=== PATIENT | male | born 1960 | race African-American/Black ===

== ENCOUNTER 2017-10-02 17:11 | Inpatient (IN) | payer OTHER ==
[~2017-10-02] VITALS: Ht 172.7 cm; Wt 113.4 kg
[2017-10-02 17:12] VITALS: BP 143/72
--- NOTE | 2017-10-02 17:12 | NUR ---
PT TAKEN BY WHEEL CHAIR TO ER BED 11
--- NOTE | 2017-10-02 17:16 | NUR ---
DR CHILDS AT BEDSIDE TO REJI
--- NOTE | 2017-10-02 17:18 | NUR ---
57Y/M BIB MOTHER FOR C/O LEFT SIDED WEAKNESS AND NUMBNESS X 3DAYS.DENIES N/V/DIZZINESS OR SOB. 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 CLEAR SPEECH. SKIN IS PINK/WARM/DRY; AAOX4 WITH EVEN AND STEADY GAIT; PATIENT STATES PAIN OF 0/10 AT THIS TIME; VSS; PATIENT POSITIONED FOR COMFORT; HOB ELEVATED; BEDRAILS UP X1; BED DOWN. ER MD MADE AWARE OF PT STATUS.
[2017-10-02] MEDS ORDERED: NACL 0.9% 1,000 ML IV ONE (17:25)
[2017-10-02] MEDS ORDERED: TAMS0.4C96 PO (17:31)
[2017-10-02] MEDS ORDERED: ACET-2869 PO (17:31)
[2017-10-02] MEDS ORDERED: CETI-32 PO (17:31)
[2017-10-02] MEDS ORDERED: ESCI20TA PO (17:31)
[2017-10-02] MEDS ORDERED: LIP80 PO (17:31)
[2017-10-02] MEDS ORDERED: FAMO-90 PO (17:31)
[2017-10-02] MEDS ORDERED: AMLO10TA PO (17:31)
[2017-10-02 18:06] LABS: BASOPHILS # (AUTO) 0.1 K/uL (0.00-0.22); BASOPHILS % (AUTO) 1.6 % (0.0-2.0); EOSINOPHILS # (AUTO) 0.3 K/uL (0-0.4); EOSINOPHILS % (AUTO) 3.6 % (0.0-4.0); HEMOGLOBIN 14.6 g/dL (12.0-18.0); LYMPHOCYTES # (AUTO) 1.7 K/uL (2.0-11.5); LYMPHOCYTES % (AUTO) 19.1 % (20.5-51.1); MEAN CORPUSCULAR HEMOGLOBIN 26 pg (27-31); MEAN CORPUSCULAR HGB CONC 32 g/dL (33-37); MONOCYTES # (AUTO) 0.6 K/uL (0.8-1.0); MONOCYTES % (AUTO) 6.3 % (1.7-9.3); NEUTROPHILS # (AUTO) 6.2 K/uL (1.8-7.7); NEUTROPHILS % (AUTO) 69.4 % (42.2-75.2); PLATELET COUNT (AUTO) 129 K/uL (140-450); RED BLOOD CELL COUNT(AUTO) 5.68 MIL/uL (4.20-6.10); RED CELL DISTRIBUTION WIDTH 13.7 % (11.6-13.7)
[2017-10-02 18:20] LABS: ANION GAP 13.7 (8-16); CREATININE 1.6 mg/dL (0.7-1.3); POTASSIUM 3.7 mmol/L (3.5-5.1)
[2017-10-02 18:22] LABS: SALICYLATE 2.8 mg/dL (2.8-20.0)
[2017-10-02 18:23] LABS: PROTHROMBIN TIME 11.2 secs (10.8-13.4)
[2017-10-02 18:24] LABS: ACETAMINOPHEN < 0.5 ug/ml (10-30); ALBUMIN 3.7 g/dL (3.4-5.0); TOTAL BILIRUBIN 0.4 mg/dL (0.0-1.0)
[2017-10-02] MEDS ORDERED: ASPIRIN 81 MG TAB.CHEW PO ONE (18:35)
[2017-10-02] MEDS ORDERED: ENOXAPARIN 120 MG/0.8 ML SYR SUBQ ONE (18:35)
[2017-10-02 18:48] LABS: BARBITURATE, URINE NEG. ng/ml (NEG <=200); BENZODIAZEPINE, URINE NEG. ng/mL (NEG <=200); CANNABINOID, URINE POS. ng/mL (NEG <=50); COCAINE, URINE POS. ng/mL (NEG <=300); OPIATE, URINE POS. ng/mL (NEG <=2000); PHENCYCLIDINE SCREEN,URINE NEG. ng/mL (NEG <=25)
--- NOTE | 2017-10-02 19:10 | NUR ---
GAVE REPORT TO LUIS OLIVIA, AND SHASTA OLIVIA
--- NOTE | 2017-10-02 19:15 | NUR ---
PER DR. CHILDS, DR. HEATON DOES NOT WISH TO ADMIT. DR. HEATON WILL COME DOWN AND PERSONALLY DISCHARGE PATIENT.
--- NOTE | 2017-10-02 19:30 | NUR ---
pt is a/o x 4. pt is resting in bed. comfort measures were implemented. vitals are stable.
[2017-10-02] MEDS ORDERED: ONDANSETRON 4 MG/2 ML VIAL IVP PRN ×2 (20:55→21:15)
[2017-10-02] MEDS ORDERED: HYDROcodone/APAP 5/325 MG 1 TAB TAB PO PRN (20:55)
--- NOTE | 2017-10-02 21:00 | NUR ---
DR. HEATON NOW WISHES TO ADMIT PATIENT.
--- NOTE | 2017-10-02 21:27 | NUR ---
pt was transffered to tele
--- NOTE | 2017-10-02 21:30 | NUR ---
Patient will be admitted to care of dr. hester. Admited to tele. Will go to room 105A. Belongings list completed. Report to Robyn.
--- NOTE | 2017-10-02 21:30 | NUR ---
gave report to tele nurse Robyn, pt vitals were stable and tolerated transfer well.
--- NOTE | 2017-10-02 21:35 | NUR ---
RECEIVED FROM ER PER HUYEN AWAKE AND ALERT. VERBALIZES WELL. NO COMPLAINTS OF ANY PAIN AT THIS TIME. CARE PLANS FOR THE NIGHT DISCUSSED WITH HIM. RAPID RESPONSE EXPLAINED. ROM X 4. NO PARALYSIS NOTED. TELEMETRY MONITORING. SKIN INTACT AND DX. OF TIA. HX. OF GERD, HTN, BIPOLAR , BPH AND HYPERLIPEMIA. NO EDEMA NOTED. ENCOURAGED TO CALL FOR ANY HELP HE MAY NEED OR IF IN ANY PAIN. "OK".
[2017-10-02 21:51] VITALS: BP 131/98
[2017-10-02] MEDS ORDERED: PNEUMOCOCCAL VACCINE 23 MCG/0.5 ML VIAL IMVAC PRN (23:15)
[2017-10-03 00:52] VITALS: BP 121/87
--- NOTE | 2017-10-03 00:54 | NUR ---
PT. SLEEPING WELL. WOKE UP EASILY WHEN VITALS TAKEN. VERBALIZES WELL. NO COMPLAINTS OF ANY PAIN DONE. TELEMETRY MONITORING. CALL LIGHT WITH IN REACH. NO SOB.
[2017-10-03 03:27] LABS: CREATINE KINASE MB 0.7 ng/mL (0-3.6)
[2017-10-03 04:53] VITALS: BP 139/97
--- NOTE | 2017-10-03 05:11 | NUR ---
PT. WOKE UP WHEN VITALS TAKEN. 02 SAT ROOM AIR 97 %. NO SOB. DENIES PAIN AT THIS TIME. ABLE TO VERBALIZE WELL.
--- NOTE | 2017-10-03 06:30 | NUR ---
SLEEPING WELL. NO COMPLAINTS DONE. NO PAIN COMPLAINTS DONE THIS SHIFT. TELEMETRY MONITORING. VS WITH IN NORMAL LIMITS. CALL LIGHT WITH IN REACH.
[2017-10-03 07:20] LABS: BASOPHILS # (AUTO) 0.1 K/uL (0.00-0.22); BASOPHILS % (AUTO) 0.8 % (0.0-2.0); EOSINOPHILS # (AUTO) 0.4 K/uL (0-0.4); EOSINOPHILS % (AUTO) 5.2 % (0.0-4.0); HEMATOCRIT 41.2 % (36-52); HEMOGLOBIN 13.5 g/dL (12.0-18.0); LYMPHOCYTES % (AUTO) 25.7 % (20.5-51.1); MEAN CORPUSCULAR HEMOGLOBIN 27 pg (27-31); MEAN CORPUSCULAR HGB CONC 33 g/dL (33-37); MONOCYTES # (AUTO) 0.4 K/uL (0.8-1.0); MONOCYTES % (AUTO) 5.8 % (1.7-9.3); NEUTROPHILS # (AUTO) 4.9 K/uL (1.8-7.7); NEUTROPHILS % (AUTO) 62.5 % (42.2-75.2); PLATELET COUNT (AUTO) 112 K/uL (140-450); RED BLOOD CELL COUNT(AUTO) 5.09 MIL/uL (4.20-6.10); RED CELL DISTRIBUTION WIDTH 13.9 % (11.6-13.7); WHITE BLOOD COUNT (AUTO) 7.8 K/uL (4.8-10.8)
[2017-10-03 07:30] LABS: CHOL/HDL RATIO 3.6 (1-4.5)
[2017-10-03 07:35] LABS: ALBUMIN 3.1 g/dL (3.4-5.0); ANION GAP 12.9 (8-16); CARBON DIOXIDE 25.2 mmol/L (21-32); CREATININE 1.4 mg/dL (0.7-1.3); POTASSIUM 4.1 mmol/L (3.5-5.1); TOTAL BILIRUBIN 0.2 mg/dL (0.0-1.0)
--- NOTE | 2017-10-03 07:45 | NUR ---
PATIENT AWAKE, ALERT, SITTING EOB. RESPIRATION EVEN, UNLABOR ON ROOM AIR. SKIN DRY AND WARM. LUNGS SOUND CLEAR THROUGHOUT. BOWEL SOUND ACTIVE. THERAPIST OCCUPATIONAL STRENGTH WERE EQUAL BILATERAL HANDS. MUSCLE STRENGTH +2 BILATERAL FEET PATIENT COMPLAINED OF NUMBNESS, TINGLING ON LEFT EXTREMITIES. IV PATENT AND INTACT. PLAN OF CARE WAS DISCUSSED WITH PATIENT. BED AT LOW POSITION. SIDE RAILS UP. CALL LIGHT WITHIN REACH. Addendum: 10/03/17 at 0946 by Yamile Nava RN MUSCLE STRENGTH 4/5 ON LEFT LOWER EXTREMITY
[2017-10-03 08:00] VITALS: BP 150/102
[2017-10-03] MEDS ORDERED: TAMSULOSIN 0.4 MG CAP PO SCH ×2 (08:30)
--- NOTE | 2017-10-03 08:49 | NUR ---
PATIENT HAS BEEN SCREENED AND CATEGORIZED MODERATE NUTRITION RISK. PATIENT WILL BE SEEN WITHIN 3-5 DAYS OF ADMISSION. 10/05/17 10/07/[address]
[2017-10-03] MEDS ORDERED: ASPIRIN 325 MG TAB PO SCH ×2 (09:00)
[2017-10-03] MEDS ORDERED: amLODIPine 5 MG TAB PO SCH ×2 (09:00)
[2017-10-03] MEDS ORDERED: ATORVASTATIN 80 MG TAB PO SCH ×2 (09:00)
[2017-10-03] MEDS ORDERED: FAMOTIDINE 20 MG TAB PO SCH ×2 (09:00)
[2017-10-03] MEDS ORDERED: ENOXAPARIN 40 MG/0.4 ML SYR SUBQ SCH ×2 (09:00)
[2017-10-03] MEDS ORDERED: ESCITALOPRAM 20 MG TAB PO SCH ×2 (09:00)
--- NOTE | 2017-10-03 10:10 | NUR ---
PATIENT AWAKE, ALERT, AMBULATED HIMSELF TO THE BATHROOM. RESPIRATION EVEN, UNLABOR ON ROOM AIR. NO DISTRESS NOTED AT THIS TIME
--- NOTE | 2017-10-03 10:57 | NUR ---
FAXED INITIAL REVIEW TO [facility] [phone] PHONE [facility] [phone]
--- NOTE | 2017-10-03 11:47 | NUR ---
PATIENT AWAKE, ALERT. RESPIRATION EVEN, UNLABOR ON ROOM AIR. DENIED PAIN, SOB AT THIS TIME. DR. DOTSON WAS AT BED SIDE. VS IS STABLE. DR DOTSON WAS MADE AWARE OF PATIENT'S ELEVATED BP, ADVISED TO CONTINUE TO MONITOR.
[2017-10-03 12:00] VITALS: BP 165/102
[2017-10-03 12:15] LABS: CREATINE KINASE MB 0.6 ng/mL (0-3.6)
--- NOTE | 2017-10-03 14:15 | NUR ---
PATIENT IS SLEEPING COMFORTABLY. RESPIRATION EVEN, UNLABOR ON ROOM AIR. NO DISTRESS NOTED AT THIS TIME
[2017-10-03 16:00] VITALS: BP 135/74
--- NOTE | 2017-10-03 16:00 | NUR ---
PATIENT WAS SLEEPING COMFORTABLY. RESPIRATION EVEN, UNLABOR ON ROOM AIR. DENIED PAIN, SOB. NO DISTRESS NOTED AT THIS TIME. CALL LIGHT WITHIN REACH
--- NOTE | 2017-10-03 18:23 | NUR ---
DISCHARGE INSTRUCTION WAS GIVEN AND EXPLAINED TO THE PATIENT. PATIENT VERBALIZED UNDERSTANDING. IV WAS REMOVED, CATHETER INTACT, NO ACTIVE BLEEDING SEEN. THEATRE PROGRAM DIRECTOR AND ID BAND WERE REMOVED. PATIENT IS STABLE AT THIS TIME
--- NOTE | 2017-10-03 18:45 | NUR ---
PATIENT WAS ESCORTED OUT IN WHEELCHAIR BY STAFF. ALL BELONGINGS WERE TAKEN WITH THE PATIENT. PATIENT IS STABLE AT THIS TIME
== END 2017-10-03 18:45 | disposition home or self-care (01) | DRG 47 ==
LOC: MED 17:11 → MTU 21:01 → MED 21:01
PROVIDERS: ADMIT Internal Medicine Pulmonary Disease; ATTEND Internal Medicine Pulmonary Disease
PROC: 3E0234Z Introduction of Serum, Toxoid and Vaccine into Muscle, Percutaneous Approach (ICD-10-PCS; principal; 2017-10-03)
DX: G45.9 Transient cerebral ischemic attack, unspecified (principal); N17.9 Acute kidney failure, unspecified; I10 Essential (primary) hypertension; E78.5 Hyperlipidemia, unspecified; K21.9 Gastro-esophageal reflux disease without esophagitis; N40.0 Benign prostatic hyperplasia without lower urinary tract symptoms; F31.9 Bipolar disorder, unspecified; F14.90 Cocaine use, unspecified, uncomplicated; F12.90 Cannabis use, unspecified, uncomplicated; E66.9 Obesity, unspecified; F17.210 Nicotine dependence, cigarettes, uncomplicated; E78.00 Pure hypercholesterolemia, unspecified; Z79.899 Other long term (current) drug therapy; Z23 Encounter for immunization
CPT/HCPCS: 36415; 70450; 71045; 80053; 80305; 82550; 82553; 84484; 85025; 85610; 85730; 87081; 90732; 93005; 93880; 96360; 96361; 96372; 97110; 99285; G0480; G0482; J1650; Q0092